=== PATIENT | female | born 1990 | race Caucasian/White ===

== ENCOUNTER 2019-03-18 12:58 | Inpatient (IN) | payer BC ==
[~2019-03-18] VITALS: Ht 157.5 cm; Wt 77.7 kg
[2019-03-19] MEDS ORDERED: PRENATAL 191 TAB PO (18:30)
--- NOTE | 2019-03-19 19:22 | NUR ---
1921- BEDSIDE ULTRASOUND PERFORMED BY DR. JONES AT THIS TIME. VERTEX PRESENTATION NOTED PER DR. JONES.
[2019-03-19 19:30] VITALS: BP 130/78; PULSE 99; TEMP 98.5
[2019-03-19 20:00] VITALS: BP 117/66; PULSE 75
[2019-03-19 20:14] LABS: BASO % 0.3 % (0.0-2.0); EOS # 0.1 (0.0-0.7); EOS % 0.7 % (0-4.0); GRAN # 6.8 (1.4-6.5); GRAN % 70.1 % (42.2-75.2); HEMOGLOBIN 12.6 g/dl (12.5-16.0); LYMPH # 2.1 (1.2-3.4); MEAN CELL VOLUME 89 fl (80.0-100.0); MEAN CORPUSCULAR HEMOGLOBIN 30 pg (27.0-31.0); MEAN CORPUSCULAR HGB CONC 34 g/dl (33.0-37.0); MEAN PLATELET VOLUME 11.9 fl (7.4-10.4); MONO # 0.6 (0.1-0.6); MONO % 6.4 % (1.7-9.3); PLATELET COUNT 221 K/mm3 (130-400); RED BLOOD COUNT 4.16 M/mm3 (4.10-5.30); REDCELL DISTRIBUTION WIDTH-CV 13.4 % (11.5-14.5)
[2019-03-19 20:15] LABS: HEMATOCRIT 36.8 % (37.0-47.0)
[2019-03-19 20:30] VITALS: BP 118/72; PULSE 76
[2019-03-19 21:00] VITALS: BP 127/64; PULSE 71
[2019-03-20] VITALS (36 sets, daily range): BP systolic 106–135; BP diastolic 53–102; PULSE 64–114; TEMP 97.7–99.3
--- NOTE | 2019-03-20 06:15 | NUR ---
Report from Brooke FRIAS to assume care of patient at this time. Patient comfortable overall with epidural but does report right sided pain with contractions. Patient repositioned from left tilt to right tilt at this time. Will continue to monitor.
--- NOTE | 2019-03-20 06:30 | NUR ---
Right sided pain continues with contractions. Epidural button pushed at this time. Filiberto LEAD CLINICAL RESEARCH COORDINATOR aware.
--- NOTE | 2019-03-20 06:40 | NUR ---
Patient reports continued right sided back pain with contractions despite pushing the epidural button. Knight catheter placed. SVE Complete/+2. Bloody show noted on exam glove. Patient repositioned to right tilt. Encouraged to rest. Will notify for further orders.
--- NOTE | 2019-03-20 11:15 | NUR ---
0815: Patient reports sleeping well. Denies pain at this time. Room and patient prepped to begin pushing. 0818: Initial push. This RN remains at bedside throughout pushing. 0823: Knight catheter dc'd - 100ml clear yellow urine noted. 0840: at bedside. Reviews FHR strip, pushing progress. remains on unit from this time until delivery, provider back and forth from bedside to labor desk. 0939: Pitocin started per orders. 1010: Straight catheter by , approximately 10ml urine returned. 1046: Nursery nurse requested at bedside for delivery. 1054: Spontaneous vaginal delivery of viable female assisted by . Infant to abdomen, care of assumed by Mu RN at this time. Pitocin off. 1100: Spontaneous vaginal delivery of placenta assisted by . Pitocin infusing at 333ml/hr. Fundus firm at D1, scant lochia noted. 2nd degree laceration repaired using 2-[address]-1 by . Perineal/labial swelling noted. 1115: Recovery period started. Fundus firm, lochia WNL. Ice pack in place.
--- NOTE | 2019-03-20 12:10 | NUR ---
Knight catheter placed due to swelling. Fundus firm, lochia WNL. Tolerating juice and crackers, regular diet en route.
--- NOTE | 2019-03-20 13:15 | NUR ---
Pericare performed. Underwear and new ice pack in place. Clean gown on. Patient to Room 216 via wheelchair. Oriented to room and plan of care. Family at bedside. Call light within reach.
[2019-03-21 01:15] VITALS: BP 121/80; PULSE 53; TEMP 98.9
--- NOTE | 2019-03-21 08:00 | NUR ---
0840 Percocet 5/325 mg one given per request and as ordered.
[2019-03-21 08:30] VITALS: BP 117/70; PULSE 63; TEMP 97.5
[2019-03-21] MEDS ORDERED: PERCOCET 325 MG1 TA2 PO (08:40)
[2019-03-21] MEDS ORDERED: IBU800 M1 PO (08:40)
--- NOTE | 2019-03-21 09:41 | NUR ---
Initial visit; Patient thanked Museum Guide for offering congratulations and God's blessings for the of her son. Museum Guide thanked family for choosing [facility].
[2019-03-21 16:45] VITALS: BP 125/81; PULSE 62; TEMP 97.3
[2019-03-21 20:00] VITALS: BP 125/81; PULSE 68; TEMP 98.1
[2019-03-22 06:55] VITALS: BP 124/85; PULSE 57; TEMP 97.6
--- NOTE | 2019-03-22 11:43 | NUR ---
Congratulated the family on behalf of [facility].
== END 2019-03-22 11:45 | disposition home or self-care (01) | DRG 807 ==
LOC: OB 03-19 12:57 → LDR 03-19 14:33 → OB 03-20 13:30
PROVIDERS: ADMIT Student in an Organized Health Care Education/Training Program
PROC: 10E0XZZ Delivery of Products of Conception, External Approach (ICD-10-PCS; principal; 2019-03-20)
PROC: 0KQM0ZZ Repair Perineum Muscle, Open Approach (ICD-10-PCS; 2019-03-20)
PROC: 10907ZC Drainage of Amniotic Fluid, Therapeutic from Products of Conception, Via Natural or Artificial Opening (ICD-10-PCS; 2019-03-20)
PROC: 3E0P7VZ Introduction of Hormone into Female Reproductive, Via Natural or Artificial Opening (ICD-10-PCS; 2019-03-20)
DX: O48.0 Post-term pregnancy (principal); Z37.0 Single live birth; O34.13 Maternal care for benign tumor of corpus uteri, third trimester; Z3A.41 41 weeks gestation of pregnancy; D25.9 Leiomyoma of uterus, unspecified; O70.1 Second degree perineal laceration during delivery
CPT/HCPCS: J0595; J2590; J7120

== ENCOUNTER → 2023-08-09 | Outpatient (CLI) | payer BC ==
[~2023-08-09] MED LIST: IBU800 M1 PO; PERCOCET 325 MG1 TA2 PO; PRENATAL 191 TAB PO
== END ==
LOC: DIA.ED 13:56
DX: O24.419 Gestational diabetes mellitus in pregnancy, unspecified control (principal)
CPT/HCPCS: G0108